=== PATIENT | female | born 2000 | race Two or more races ===

== ENCOUNTER 2019-05-08 23:17 | Emergency (ER) | payer OTHER ==
[2019-05-08] MEDS ORDERED: IPRATROPIUM/ALBUTEROL 0.5-2.5 MG/3 ML AMPUL NEB ONE (23:27)
[2019-05-08] MEDS ORDERED: ALBUTEROL SULFATE HFA (90 MCG/PUFF) 8 GM MDI (1 MDI/ER DISP) IH ONE (23:28)
--- NOTE | 2019-05-08 23:31 | ER Document Report ---
HPI - HPI Time Seen by Provider: 05/08/19 23:23 Notes: 18-year-old female patient presenting to the emergency department chief complaint of possible asthma exacerbation. Patient reports history of asthma, anxiety, and depression and bipolar. She states that she started having some shortness of breath earlier and could not find her inhaler which she states made the shortness of breath worse. She denies any recent illness, cough, congestion or fever. Past Medical History - General Information source: Patient - Social History Smoking Status: Never Smoker Frequency of alcohol use: None Drug Abuse: None Family History: Reviewed & Not Pertinent Pulmonary Medical History: Reports: Hx Asthma Psychiatric Medical History: Reports: Hx Anxiety, Hx Bipolar Disorder, Hx Depression Surgical Hx: Negative - Immunizations Immunizations up to date: Yes Vertical Provider Document - CONSTITUTIONAL Notes: PHYSICAL EXAMINATION: GENERAL: Well-appearing, well-nourished and in no acute distress. HEAD: Atraumatic, normocephalic. EYES: Pupils equal round extraocular movements intact, conjunctiva are normal. ENT: Nares patent NECK: Normal range of motion LUNGS: No respiratory distress, lung sounds clear and equal bilaterally. Musculoskeletal: Normal range of motion NEUROLOGICAL: Normal speech, normal gait. PSYCH: Normal mood, normal affect. SKIN: Warm, Dry, normal turgor, no rashes or lesions noted. Course - Re-evaluation Re-evalutation: Patient will receive DuoNeb treatment here in the emergency department. If this eases her breathing she will be discharged home with a dispense albuterol inhaler and plans to follow-up with her primary care provider. Combination of asthma/anxiety attack would be my working diagnosis at this point time. - Vital Signs Vital signs: Temp Pulse Resp BP Pulse Ox 97.4 F 106 H 24 H 123/76 95 05/08/19 23:22 05/08/19 23:22 05/08/19 23:22 05/08/19 23:22 05/08/19 23:22 Discharge - Discharge Clinical Impression: Asthma, Anxiety Condition: Stable Disposition: HOME, SELF-CARE Additional Instructions: You were seen today for a possible flareup of both asthma and anxiety. Likely you came in in time and we were able to get your breathing calmed down. Please keep the albuterol inhaler with you at all times. You may take 2 puffs every 4 hours for shortness of breath or wheezing. Please keep any and all follow-up appointments with your primary care doctor, call them Saturday to schedule an appointment for closer management of your asthma symptoms. Be sure to avoid triggers such as exposure to tobacco smoke.
[2019-05-09 00:28] VITALS: BP 110/62
== END 2019-05-09 00:29 | disposition home or self-care (01) ==
LOC: ER 23:17
DX: J45.901 Unspecified asthma with (acute) exacerbation (principal); F41.9 Anxiety disorder, unspecified
CPT/HCPCS: 94640; 99284; J3490; J7620